=== PATIENT | male | born 1995 | race Caucasian/White ===

== ENCOUNTER 2020-04-16 15:21 | Emergency (ER) | payer OTHER ==
[~2020-04-16] VITALS: Ht 177.8 cm; Wt 108.9 kg
[2020-04-16 16:10] VITALS: BP 142/108
[2020-04-16] MEDS ORDERED: KETOROLAC 60 MG/2 ML VIAL. IM ONE (16:30)
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
[2020-04-16] MEDS ORDERED: CYCL-331 PO (17:25)
[2020-04-16] MEDS ORDERED: IBUP600T16 PO (17:25)
== END 2020-04-16 17:31 | disposition home or self-care (01) ==
LOC: ER 15:21
DX: S16.1XXA Strain of muscle, fascia and tendon at neck level, initial encounter (principal); S39.012A Strain of muscle, fascia and tendon of lower back, initial encounter; J45.909 Unspecified asthma, uncomplicated; V49.9XXA Car occupant (driver) (passenger) injured in unspecified traffic accident, initial encounter; Y93.89 Activity, other specified; Y92.413 State road as the place of occurrence of the external cause; Y99.8 Other external cause status
CPT/HCPCS: 72040; 72110; 96372; 99284; J1885